=== PATIENT | male | born 1955 | race African-American/Black ===

== ENCOUNTER 2016-08-20 00:29 | Emergency (ER) | payer SELFPAY ==
[2016-08-20] MEDS ORDERED: Bupivacaine 0.5% 10 ML VIAL ONE (00:37)
[2016-08-20] MEDS ORDERED: Penicillin V Potassium 250 MG TAB ONE (00:42)
--- NOTE | 2016-08-20 02:21 | ERRECORD ---
[facility] EMERGENCY RECORD HPI TOOTHACHE (00:40 PMYE) CHIEF COMPLAINT: Patient presents for evaluation of toothache. HISTORIAN: History provided by patient. LOCATION: Symptoms are localized. TEETH: #5. QUALITY: Pain is dull in nature, described as aching. SEVERITY: Maximum severity of symptoms moderate, Currently symptoms are moderate, Maximum severity of pain rated as 10/10. TIME COURSE: Gradual onset of symptoms, There has been no change in the patient's symptoms over time. ASSOCIATED WITH: No associated symptoms. EXACERBATED BY: Patient's condition exacerbated by nothing. ROS (00:41 PMYE) CONSTITUTIONAL: Negative constitutional review of systems, Historian denies chills, denies fatigue, denies fever. EYES: Negative eye review of systems, Historian denies eye pain, denies eye redness. ENT: Negative ears, nose, throat review of systems, Historian denies dysphasia, denies otalgia, denies sore throat. CARDIOVASCULAR: Negative cardiovascular review of systems, Historian denies chest pain, denies dyspnea on exertion, denies syncope. RESPIRATORY: Negative respiratory review of systems, Historian denies cough, denies shortness of breath, denies wheezing. GI: Negative gastrointestinal review of systems, Historian denies abdominal pain, denies nausea, denies vomiting. MUSCULOSKELETAL: Negative musculoskeletal review of systems, Historian denies back pain, denies neck pain. SKIN: Negative skin review of systems, Historian denies rash. NEUROLOGIC: Negative neurologic review of systems, Historian denies confusion, denies headache, denies paresthesias. PSYCHIATRIC: Negative psychiatric review of systems, Historian denies alcohol abuse, denies drug abuse, denies homicidal ideation, denies suicidal ideation. PAST MEDICAL HISTORY (00:39 LHAL) MEDICAL HISTORY: No past medical history, Flu vaccine not up to date, Tetanus immunization up to date, Pneumococcal vaccine not up to date. MALE SURGICAL HISTORY: Surgical history of hernia repair, abdominal Hernia. PSYCHIATRIC HISTORY: No previous psychiatric history. SOCIAL HISTORY: Patient denies alcohol use, Patient is a former drug user, abused cocaine, Patient has no smoking history. KNOWN ALLERGIES No Known Allergies (Unconfirmed) No Known Drug Allergies &a-1R&a+25V*p+0X*i9241B*c202B*c15G*c2P*p-0X&a-25V&a+1R Name: Joaquin Hernandez : 1955 M60 MedRec: [id number] AcctNum: [id number] Prepared: SatAug 20, 2016 00:58 by Interface Page 1 of 3 pMD [facility] EMERGENCY RECORD CURRENT MEDICATIONS (00:36 LHAL) None VITAL SIGNS VITAL SIGNS: BP: 138/87 (Sitting), Pulse: 60 (Regular), Resp: 16 (Non-Labored), Temp: 97.0 (Tympanic), Pain: 10 (Constant), O2 sat: 99 on Room Air, Time: 08/20/2016 00:30. (00:30 LHAL) Pain: 2, Time: 08/20/2016 00:49. (00:49 LHAL) PHYSICAL EXAM (00:41 PMYE) CONSTITUTIONAL: Vital signs reviewed, Patient afebrile, Pulse normal, Blood pressure normal, Respiratory rate normal. HEAD: Head exam normal, Head exam included findings of head atraumatic, normocephalic. EYES: Eye exam normal, Eye exam included findings of eyelids normal to inspection, Pupils equally round and reactive to light, Extraocular muscles intact. ENT: ENT exam normal, Pharynx exam normal, Uvula exam normal, Tonsil exam normal, tooth #5 is fractured centrally w/ surrounding gingival erythema. NECK: Neck exam normal, Neck exam included findings of normal range of motion, Trachea midline. RESPIRATORY CHEST: Respiratory and chest exam normal, No wheezing, No rales, No rhonchi. CARDIOVASCULAR: Cardiovascular assessment normal, Cardiovascular exam included findings of heart rate regular rate and rhythm, Heart sounds normal. ABDOMEN MALE: Abdominal exam normal, Abdominal exam included findings of abdomen nontender, Bowel sounds normal. BACK: Back exam normal. NEURO: Neuro exam normal, Neuro exam findings include patient oriented to person, place and time, Nancy coma scale 15, Speech normal. SKIN: Skin exam included findings of skin warm, dry, and normal in color. PSYCHIATRIC: Psychiatric exam included findings of patient oriented to person place and time, Normal affect. MEDICATION ADMINISTRATION SUMMARY Drug Name: penicillin V potassium, Dose Ordered: 500 mg, Route: Oral, Status: Given, Time: 00:43 08/20/2016, Detailed record available in Medication Service section. DOCTOR NOTES (00:43 PMYE) TEXT: Superior alveolar block preformed w good anesthesia achieved and no complications. will provide Pen VK and [place] for pain control [place] 5/325 Disp 10 Si PO Q 4 PRN pain. &a-1R&a+25V*p+0X*t4454L*c202B*c15G*c2P*p-0X&a-25V&a+1R Name: David Joaquin Flores : 1955 M60 MedRec: [id number] AcctNum: [id number] Prepared: SatAug 20, 2016 00:58 by Interface Page 2 of 3 pMD [facility] EMERGENCY RECORD PROBLEM LIST No recorded problems DIAGNOSIS (00:44 PMYE) FINAL: PRIMARY: PERIAPICAL ABSCESS WITHOUT SINUS. PRESCRIPTION (00:45 PMYE) penicillin V potassium: TABLET : 500 mg : ORAL : Quantity: 500 Unit: mg Route: ORAL Schedule: every 6 hours Dispense: 40 Unit: tab(s) May substitute. Refills: No Refills . NOTES: No Refills. DISPOSITION PATIENT: Disposition Type: Discharge, Disposition: *Discharge Home. (00:45 PMYE) Patient left the department. (00:53 [facility]) Hardy: LHAL=JOSE MARIA Wilkerson, Ngoc PMYE=DO Burnham Paul &a-1R&a+25V*p+0X*d2999T*c202B*c15G*c2P*p-0X&a-25V&a+1R Name: Joaquin Hernandez : 1955 M60 MedRec: [id number] AcctNum: [id number] Prepared: SatAug 20, 2016 00:58 by Interface Page 3 of 3 pMD MTDD
--- NOTE | 2016-08-20 02:27 | PICIS ---
[facility] EMERGENCY RECORD TRIAGE (SatAug 20, 2016 00:36 LHAL) TRIAGE NOTES: RT FRONT TOOTH ACHE SINCE . (SatAug 20, 2016 00:36 LHAL) PATIENT: NAME: Joaquin Hernandez, AGE: 60, GENDER: male, : Sat1955, TIME OF GREET: SatAug 20, 2016 00:30, PREFERRED LANGUAGE: [place], ETHNICITY: Not or , ECODE BILLING MAP: [facility], SSN: [id number], Zip Code: [address], KG WEIGHT: 90.72, PHONE: , , , PERSON ID: [id number], PCP: NONE. (SatAug 20, 2016 00:36 LHAL) COMPLAINT: TOOTH PAIN. (SatAug 20, 2016 00:36 AL) ADMISSION: URGENCY: 5 Fast Track, ADMISSION SOURCE: Home, TRANSPORT: CAR, BED: ER -03. (SatAug 20, 2016 00:36 LHAL) ASSESSMENT: Assessment: TOOTHACHE SINCE SATURDAY, Symptoms began SATURDAY. (00:39 LHAL) PAIN: Patient complains of pain described as, aching, on a scale 0-10 patient rates pain as 10, Pain is constant, No aggravating factors, No relieving factors. (00:39 LHAL) IMMUNIZATIONS: Flu vaccine not up to date, Tetanus immunization up to date, Pneumococcal vaccine not up to date, Notes: TOOK TYLENOL AND MOTRIN ONE HR AGO, HAS BEEN USING MOTRIN SINCE SATURDAY. (00:39 LHAL) SIRS SCORING: Heart Rate 55-109 (0), Temp range 96.8-101.1 (0), respiratory rate 12-24 (0), Mental Status altered: no (0), Infection or Suspected Infection: No. (00:39 LHAL) TRIAGE SCREENING: Patient denies suicidal ideation, Patient denies presence of domestic violence. (00:39 LHAL) PROVIDERS: TRIAGE NURSE: Ngoc Wilkerson RN. (SatAug 20, 2016 00:36 LHAL) VITAL SIGNS: BP 138/87, (Sitting), Pulse 60, (Regular), Resp 16, (Non-Labored), Temp 97.0, (Tympanic), Pain 10, (Constant), O2 Sat 99, on Room Air, Time 08/20/2016 00:30. (00:30 LHAL) PREVIOUS VISIT ALLERGIES: No Known Drug Allergies. (SatAug 20, 2016 00:36 LHAL) No Known Drug Allergies. (00:39 LHAL) KNOWN ALLERGIES No Known Allergies (Unconfirmed) No Known Drug Allergies CURRENT MEDICATIONS (00:36 LHAL) None VITAL SIGNS VITAL SIGNS: BP: 138/87 (Sitting), Pulse: 60 (Regular), Resp: 16 (Non-Labored), Temp: 97.0 (Tympanic), Pain: 10 (Constant), O2 sat: 99 on Room Air, Time: 08/20/2016 00:30. (00:30 LHAL) Pain: 2, Time: 08/20/2016 00:49. (00:49 LHAL) &a-1R&a+25V*p+0X*v5944G*c202B*c15G*c2P*p-0X&a-25V&a+1R Name: Joaquin Hernandez : 1955 M60 MedRec: [id number] AcctNum: [id number] Prepared: SatAug 20, 2016 00:58 by Interface Page 1 of 5 pMD [facility] EMERGENCY RECORD NURSING ASSESSMENT: DENTAL (00:36 LHAL) CONSTITUTIONAL: Patient arrives ambulatory, Gait steady, History obtained from patient, Patient appears, uncomfortable, Patient cooperative, Patient alert, Oriented to person, place and time, Skin warm, Skin dry, Skin normal in color, Mucous membranes pink, Mucous membranes moist, Patient is well-groomed, Patient complains of TOOTHACHE. PAIN: aching pain, RIGHT UPPER INCISOR, Onset of pain SATURDAY, constant, on a scale 0-10 patient rates pain as 10, TAKING MOTRIN/TYLENOL NO RELIEF, Pain exacerbated by nothing. DENTAL: Dental assessment findings include mouth normal, Teeth abnormal:, signs of infection to secondary tooth (teeth), missing secondary tooth (teeth), gums tender, no associated malocclusion of jaw, no associated bleeding, no associated swelling, Notes: HASN'T CALLED A DENTIST. SAFETY: Side rails up, Cart/Stretcher in lowest position, Family at bedside, Call light within reach. NURSING PROCEDURE: DISCHARGE NOTE (00:49 AL) DISCHARGE: Patient discharged to home, ambulating without assistance, driving self, unaccompanied, Summary of Care printed/ provided, Patient requested and was provided an electronic copy of Discharge Instructions, Transition record given to patient, Discharge instructions given to patient, Simple or moderate discharge teaching performed, by Johnnie WILKERSON RN, Prescriptions given and instructions on side effects given, Name of prescription(s) given: PEN V K, NORCO, Medication reconciliation form given, and reviewed with patient, Above person(s) verbalized understanding of discharge instructions and follow-up care, Notes: DC HOME STABLE, FEELING BETTER. BELONGINGS: Belongings and valuables with patient upon arrival to the Emergency Department include:. VITAL SIGNS: Pain: 2. NURSING PROCEDURE: NURSE NOTES (00:39 AL) NURSES NOTES: Patient examined by physician, Notes: MD INJECTS MARCAINE TO GUM. MEDICATION ADMINISTRATION SUMMARY Drug Name: penicillin V potassium, Dose Ordered: 500 mg, Route: Oral, Status: Given, Time: 00:43 08/20/2016, Detailed record available in Medication Service section. MEDICATION SERVICE penicillin V potassium: Order: penicillin V potassium - Dose: 500 mg : Oral Schedule: Now Ordered by: Julián Burnham DO &a-1R&a+25V*p+0X*j2750B*c202B*c15G*c2P*p-0X&a-25V&a+1R Name: Joaquin Hernandez : 1955 M60 MedRec: [id number] AcctNum: [id number] Prepared: SatAug 20, 2016 00:58 by Interface Page 2 of 5 D [facility] EMERGENCY RECORD Entered by: Julián Burnham DO SatAug 20, 2016 00:40 Documented as given by: Ngoc Wilkerson RN SatAug 20, 2016 00:43 Patient, Medication, Dose, Route and Time verified prior to administration. Amount given: 500 MG, Site: Medication administered P.O., Correct patient, time, route, dose and medication confirmed prior to administration, Patient advised of actions and side-effects prior to administration, Allergies confirmed and medications reviewed prior to administration, Administered by Johnnie WILKERSON RN, Patient in position of comfort, Side rails up, Cart in lowest position. : Follow Up : No signs or symptoms of allergic reaction noted. (00:49 LHAL) HPI TOOTHACHE (00:40 PMYE) CHIEF COMPLAINT: Patient presents for evaluation of toothache. HISTORIAN: History provided by patient. LOCATION: Symptoms are localized. TEETH: #5. QUALITY: Pain is dull in nature, described as aching. SEVERITY: Maximum severity of symptoms moderate, Currently symptoms are moderate, Maximum severity of pain rated as 10/10. TIME COURSE: Gradual onset of symptoms, There has been no change in the patient's symptoms over time. ASSOCIATED WITH: No associated symptoms. EXACERBATED BY: Patient's condition exacerbated by nothing. ROS (00:41 PMYE) CONSTITUTIONAL: Negative constitutional review of systems, Historian denies chills, denies fatigue, denies fever. EYES: Negative eye review of systems, Historian denies eye pain, denies eye redness. ENT: Negative ears, nose, throat review of systems, Historian denies dysphasia, denies otalgia, denies sore throat. CARDIOVASCULAR: Negative cardiovascular review of systems, Historian denies chest pain, denies dyspnea on exertion, denies syncope. RESPIRATORY: Negative respiratory review of systems, Historian denies cough, denies shortness of breath, denies wheezing. GI: Negative gastrointestinal review of systems, Historian denies abdominal pain, denies nausea, denies vomiting. MUSCULOSKELETAL: Negative musculoskeletal review of systems, Historian denies back pain, denies neck pain. SKIN: Negative skin review of systems, Historian denies rash. NEUROLOGIC: Negative neurologic review of systems, Historian denies confusion, denies headache, denies paresthesias. PSYCHIATRIC: Negative psychiatric review of systems, Historian denies alcohol abuse, denies drug abuse, denies homicidal ideation, denies suicidal ideation. &a-1R&a+25V*p+0X*s8220S*c202B*c15G*c2P*p-0X&a-25V&a+1R Name: Joaquin Hernandez : 1955 M60 MedRec: [id number] AcctNum: [id number] Prepared: SatAug 20, 2016 00:58 by Interface Page 3 of 5 pMD [facility] EMERGENCY RECORD PAST MEDICAL HISTORY (00:39 LHAL) MEDICAL HISTORY: No past medical history, Flu vaccine not up to date, Tetanus immunization up to date, Pneumococcal vaccine not up to date. MALE SURGICAL HISTORY: Surgical history of hernia repair, abdominal Hernia. PSYCHIATRIC HISTORY: No previous psychiatric history. SOCIAL HISTORY: Patient denies alcohol use, Patient is a former drug user, abused cocaine, Patient has no smoking history. PHYSICAL EXAM (00:41 PMYE) CONSTITUTIONAL: Vital signs reviewed, Patient afebrile, Pulse normal, Blood pressure normal, Respiratory rate normal. HEAD: Head exam normal, Head exam included findings of head atraumatic, normocephalic. EYES: Eye exam normal, Eye exam included findings of eyelids normal to inspection, Pupils equally round and reactive to light, Extraocular muscles intact. ENT: ENT exam normal, Pharynx exam normal, Uvula exam normal, Tonsil exam normal, tooth #5 is fractured centrally w/ surrounding gingival erythema. NECK: Neck exam normal, Neck exam included findings of normal range of motion, Trachea midline. RESPIRATORY CHEST: Respiratory and chest exam normal, No wheezing, No rales, No rhonchi. CARDIOVASCULAR: Cardiovascular assessment normal, Cardiovascular exam included findings of heart rate regular rate and rhythm, Heart sounds normal. ABDOMEN MALE: Abdominal exam normal, Abdominal exam included findings of abdomen nontender, Bowel sounds normal. BACK: Back exam normal. NEURO: Neuro exam normal, Neuro exam findings include patient oriented to person, place and time, Nancy coma scale 15, Speech normal. SKIN: Skin exam included findings of skin warm, dry, and normal in color. PSYCHIATRIC: Psychiatric exam included findings of patient oriented to person place and time, Normal affect. EVENTS TRANSFER: Triage to Emergency Emergency Room -03. (00:36 LHAL) Removed from Emergency Emergency Room -03. (00:53 LHAL) DOCTOR NOTES (00:43 PMYE) TEXT: Superior alveolar block preformed w good anesthesia achieved and no complications. will provide Pen VK and [place] for pain control [place] 5/325 Disp 10 Si PO Q 4 PRN pain. PROBLEM LIST &a-1R&a+25V*p+0X*e8879H*c202B*c15G*c2P*p-0X&a-25V&a+1R Name: Joaquin Hernandez : 1955 M60 MedRec: [id number] AcctNum: [id number] Prepared: SatAug 20, 2016 00:58 by Interface Page 4 of 5 pMD [facility] EMERGENCY RECORD No recorded problems DIAGNOSIS (00:44 PMYE) FINAL: PRIMARY: PERIAPICAL ABSCESS WITHOUT SINUS. DISPOSITION PATIENT: Disposition Type: Discharge, Disposition: *Discharge Home. (00:45 PMYE) Patient left the department. (00:53 LHAL) INSTRUCTION (00:46 PMYE) DISCHARGE: DENTAL ABSCESS. FOLLOWUP: Follow up with Primary Care Physician in 1-2 days. SPECIAL: Follow with your PCP. PRESCRIPTION (00:45 PMYE) penicillin V potassium: TABLET : 500 mg : ORAL : Quantity: 500 Unit: mg Route: ORAL Schedule: every 6 hours Dispense: 40 Unit: tab(s) May substitute. Refills: No Refills . NOTES: No Refills. IMAGING NORCO RX: Image captured from scanner. (00:50 LHAL) *DISCHARGE INSTRUCTIONS RECEIPT: Image captured from scanner. (00:50 LHAL) *SUPPLY CHARGE SHEET: Image captured from scanner. (00:51 LHAL) ADMIN DIGITAL SIGNATURE: DO Burnham Paul. (00:47 PMYE) DO Burnham Paul. (00:47 PMYE) JOSE MARIA Wilkerson Linda. (00:52 LHAL) Hardy: LHAL=JOSE MARIA Wilkerson Linda PMYE=DO Burnham Paul &a-1R&a+25V*p+0X*c7002Y*c202B*c15G*c2P*p-0X&a-25V&a+1R Name: Joaquin Hernandez : 1955 M60 MedRec: [id number] AcctNum: [id number] Prepared: SatAug 20, 2016 00:58 by Interface Page 5 of 5 pMD MTDD
== END 2016-08-20 00:49 | disposition home or self-care (01) ==
LOC: NAV ERS 00:29
DX: K04.7 Periapical abscess without sinus (principal)
CPT/HCPCS: 64400; J3490

== ENCOUNTER 2017-07-12 11:54 | Emergency (ER) | payer SELFPAY ==
[2017-07-12] MEDS ORDERED: Ibuprofen 800 MG TAB ONE (12:43)
[2017-07-12] MEDS ORDERED: HYDROcodone/Acetaminophen 5/325 mg Tablet ONE (12:43)
--- NOTE | 2017-07-12 13:33 | RAD ---
RIGHT FOOT THREE VIEWS: HISTORY: Pain in the great toe. Dropped car battery on foot. COMPARISON: None. FINDINGS: Mild hallus valgus deformity with mild degenerative change in the first metatarsophalangeal joint spa ce. There is mid foot soft tissue swelling. Other joint spaces are preserved. There is a bony defe ct lateral to the cuboid bone. Etiology and significance are uncertain. Better interrogation with C T may be beneficial. Lisfranc alignment is maintained. IMPRESSION: 1. Midfoot soft tissue swelling. 2. Ossific density lateral to the cuboid bone, of uncertain etiology and significance. If there is pain or point tenderness in this region, consider CT. 3. Degenerative change in the first metatarsophalangeal joint space. POS: THANIA
== END 2017-07-12 12:55 | disposition home or self-care (01) ==
LOC: NAV ERS 11:54
DX: S90.31XA Contusion of right foot, initial encounter (principal); Z79.899 Other long term (current) drug therapy; W20.8XXA Other cause of strike by thrown, projected or falling object, initial encounter

== ENCOUNTER 2017-07-20 11:08 | Emergency (ER) | payer SELFPAY | END 2017-07-20 11:48 | disposition home or self-care (01) | LOC: NAV ERS 11:08 | DX: H81.10 Benign paroxysmal vertigo, unspecified ear (principal); Z79.899 Other long term (current) drug therapy | CPT/HCPCS: 93005 ==

== ENCOUNTER 2018-09-16 20:09 | Emergency (ER) | payer SELFPAY | END 2018-09-16 20:40 | disposition home or self-care (01) | LOC: NAV ERS 20:09 | DX: R10.13 Epigastric pain (principal) | CPT/HCPCS: 99283 ==

== ENCOUNTER 2020-02-21 15:13 | Emergency (ER) | payer MEDICARE, SELFPAY ==
[2020-02-21] MEDS ORDERED: Ketorolac Tromethamine 60 MG/2 ML VIAL ONE (15:55)
--- NOTE | 2020-02-21 16:16 | RAD ---
Left shoulder 3 views HISTORY: Left shoulder pain. FINDINGS: Acromioclavicular and glenohumeral alignment are maintained with moderate osteophytosis. Dy strophic calcification projects over the acromioclavicular joint superiorly. Linear amorphous calcification also projects over the distal supraspinatus tendon. IMPRESSION : Rotator cuff calcific tendinosis. Osteoarthritis about the shoulder.
== END 2020-02-21 16:25 | disposition home or self-care (01) ==
LOC: NAV ERS 15:13
DX: S46.912A Strain of unspecified muscle, fascia and tendon at shoulder and upper arm level, left arm, initial encounter (principal); K21.9 Gastro-esophageal reflux disease without esophagitis; X58.XXXA Exposure to other specified factors, initial encounter
CPT/HCPCS: 96372; J1885

== ENCOUNTER 2020-06-11 09:26 | Emergency (ER) | payer MEDICARE | END 2020-06-11 09:59 | disposition home or self-care (01) | LOC: NAV ERS 09:26 | DX: J34.0 Abscess, furuncle and carbuncle of nose (principal); L03.211 Cellulitis of face; K21.9 Gastro-esophageal reflux disease without esophagitis; Z79.899 Other long term (current) drug therapy | CPT/HCPCS: 99283 ==

== ENCOUNTER 2020-10-30 18:41 | Emergency (ER) | payer MEDICARE ==
[2020-10-30] MEDS ORDERED: Lidocaine 1% w/Epinephrine 1:100K 30 ML VIAL ONE (19:07)
[2020-10-30] MEDS ORDERED: Amoxicillin/Potassium Clav 875 MG TAB ONE (19:24)
== END 2020-10-30 19:28 | disposition home or self-care (01) ==
LOC: NAV ERS 18:41
DX: K04.7 Periapical abscess without sinus (principal); K21.9 Gastro-esophageal reflux disease without esophagitis
CPT/HCPCS: 41800

== ENCOUNTER 2021-05-28 20:29 | Emergency (ER) | payer MEDICARE, SELFPAY ==
[2021-05-28] MEDS ORDERED: Acetaminophen 325 MG TAB ONE (20:52)
== END 2021-05-28 20:56 | disposition home or self-care (01) ==
LOC: NAV ERS 20:29
DX: M79.671 Pain in right foot (principal); K21.9 Gastro-esophageal reflux disease without esophagitis
CPT/HCPCS: 99283

== ENCOUNTER 2021-12-05 19:16 | Outpatient (CLI) | payer MEDICARE | END 2021-12-05 19:17 | disposition home or self-care (01) | LOC: NAV RAD 19:16 | PROVIDERS: ATTEND Family Medicine | DX: S40.851A Superficial foreign body of right upper arm, initial encounter (principal); M25.561 Pain in right knee; M17.11 Unilateral primary osteoarthritis, right knee | CPT/HCPCS: 73565 ==

== ENCOUNTER 2022-01-17 21:50 | Emergency (ER) | payer MEDICARE, OTHER | END 2022-01-17 22:26 | disposition home or self-care (01) | LOC: NAV ERS 21:50 | DX: M72.2 Plantar fascial fibromatosis (principal); K21.9 Gastro-esophageal reflux disease without esophagitis | CPT/HCPCS: 99283 ==

== ENCOUNTER 2022-01-29 08:43 | Emergency (ER) | payer OTHER ==
[2022-01-29] MEDS ORDERED: Ondansetron PF 4 MG/2 ML Vial ONE (09:28)
[2022-01-29] MEDS ORDERED: Sodium Chloride 0.9% 1,000 ML ONE (09:28)
[2022-01-29 09:30] LABS: Bilirubin Negative (Negative); Blood, Urine Trace (Negative); Clarity Clear (Clear); Glucose, Urine (Dipstick) Negative (Negative); Ketone, Urine Negative (Negative); Leukocyte Negative (Negative); Nitrite Negative (Negative); Protein, Urine (Dipstick) Negative (Neg-Trace); Specific Gravity, Urine 1.025 (1.005-1.030); pH, Urine 6.5 (5.0-9.0)
[2022-01-29 09:35] LABS: #Eosinphils 0.2 thou/uL (0.0-0.7); #Lymphocytes 1.3 thou/uL (1.20-3.40); #Monocytes 0.7 thou/uL (0.11-0.59); #Neutrophils 4.2 thou/uL (1.40-6.50); %Basophils 0.7 % (0.0-1.0); %Eosinophils 2.9 % (0.0-10.0); %Lymphocytes 20.1 % (21.0-51.0); %Monocytes 10.9 % (0.0-10.0); %Neutrophils 65.4 % (42.0-75.0); Hemoglobin 13.6 g/dL (14.0-18.0); Mean Corpuscular HGB CONC 31.4 g/dL (32.0-36.0); Mean Corpuscular Hemoglobin 29.2 pg (27.0-31.0); Mean Corpuscular Volume 92.9 fL (78.0-98.0); Mean Platelet Volume 6.8 fL (7.4-10.4); Platelet Count 202 thou/uL (130-400); RBC Distribution Width 12.3 % (11.5-14.5); Red Blood Cell (RBC) Count 4.65 mill/uL (4.70-6.10); White Blood Cell (WBC) Count 6.4 thou/uL (4.8-10.8)
[2022-01-29 09:41] LABS: WBC/HPF 0-3 HPF (0-3)
[2022-01-29 09:42] LABS: Bacteria/HPF None Seen HPF (None Seen); Squamous Epithelial 0-3 HPF (0-3)
[2022-01-29 09:48] LABS: ALT (SGPT) 19 U/L (8-55); AST (SGOT) 17 U/L (5-34); Albumin 3.8 g/dL (3.4-4.8); Alkaline Phosphatase 68 U/L (40-110); Anion Gap 13 mmol/L (10-20); BUN (Urea Nitrogen) 11 mg/dL (8.4-25.7); Bilirubin, Total 0.7 mg/dL (0.2-1.2); Calc. Creatinine Clearance 0 mL/min (70-130); Calcium 8.8 mg/dL (7.8-10.44); Carbon Dioxide 23 mmol/L (23-31); Chloride 107 mmol/L (98-107); Globulin 3.7 g/dL (2.4-3.5); Glucose 107 mg/dL (80-115); Lipase 18 U/L (8-78); Potassium 3.7 mmol/L (3.5-5.1); Protein, Total 7.5 g/dL (5.8-8.1); Sodium 139 mmol/L (136-145)
== END 2022-01-29 11:56 | disposition home or self-care (01) ==
LOC: NAV ERS 08:43
DX: K40.90 Unilateral inguinal hernia, without obstruction or gangrene, not specified as recurrent (principal); N32.89 Other specified disorders of bladder; K21.9 Gastro-esophageal reflux disease without esophagitis
CPT/HCPCS: 74176; 80053; 81003; 81015; 83690; 84484; 85025; 93005; 94760; 96361; 96374; J2405; J7050

== ENCOUNTER 2022-02-03 10:14 | Emergency (ER) | payer OTHER | END 2022-02-03 11:11 | disposition home or self-care (01) | LOC: NAV ERS 10:14 | DX: S16.1XXA Strain of muscle, fascia and tendon at neck level, initial encounter (principal); K21.9 Gastro-esophageal reflux disease without esophagitis; Z79.899 Other long term (current) drug therapy; X58.XXXA Exposure to other specified factors, initial encounter | CPT/HCPCS: 99283 ==

== ENCOUNTER 2022-05-10 10:10 | Outpatient (CLI) | payer OTHER ==
[~2022-05-10 10:10] MED LIST: Iopamidol 370 76% 100 ML VIAL ONE
== END 2022-05-10 10:11 | disposition home or self-care (01) ==
LOC: NAV CT 10:10
PROVIDERS: ATTEND Family Medicine
DX: Z01.818 Encounter for other preprocedural examination (principal); H93.19 Tinnitus, unspecified ear; I67.82 Cerebral ischemia
CPT/HCPCS: 36415; 70470; 82565; Q9967

== ENCOUNTER 2024-02-12 14:29 | Emergency (ER) | payer MEDICARE, OTHER, SELFPAY ==
[2024-02-12] MEDS ORDERED: Ondansetron PF 4 MG/2 ML Vial ONE (15:23)
[2024-02-12] MEDS ORDERED: Sodium Chloride 0.9% 1,000 ML ONE (15:23)
[2024-02-12 15:36] LABS: #Basophils 0.2 thou/uL (0.0-0.2); #Eosinphils 0.1 thou/uL (0.0-0.7); #Lymphocytes 0.6 thou/uL (1.20-3.40); #Monocytes 0.7 thou/uL (0.11-0.59); #Neutrophils 3.6 thou/uL (1.40-6.50); %Basophils 3.7 % (0.0-1.0); %Eosinophils 1.1 % (0.0-10.0); %Lymphocytes 10.8 % (21.0-51.0); %Monocytes 13.4 % (0.0-10.0); Hematocrit 43.7 % (42.0-52.0); Hemoglobin 14.1 g/dL (14.0-18.0); Mean Corpuscular HGB CONC 32.2 g/dL (32.0-36.0); Mean Corpuscular Hemoglobin 28.8 pg (27.0-31.0); Mean Corpuscular Volume 89.6 fl (78.0-98.0); Mean Platelet Volume 6.5 fL (7.4-10.4); Platelet Count 181 10x3/uL (130-400); RBC Distribution Width 11.9 % (11.5-14.5); Red Blood Cell (RBC) Count 4.88 mill/uL (4.70-6.10)
[2024-02-12 15:42] LABS: ALT (SGPT) 22 U/L (8-55); AST (SGOT) 25 U/L (5-34); Albumin 3.9 g/dL (3.4-4.8); Alkaline Phosphatase 72 U/L (40-110); Anion Gap 15 mmol/L (10-20); BUN (Urea Nitrogen) 18 mg/dL (8.4-25.7); Bilirubin, Total 0.6 mg/dL (0.2-1.2); CK (CPK) 204 U/L (30-200); Calc. Creatinine Clearance 0 mL/min (70-130); Calcium 9.2 mg/dL (7.8-10.44); Carbon Dioxide 22 mmol/L (23-31); Chloride 103 mmol/L (98-107); Estimated GFR 49; Globulin 4.3 g/dL (2.4-3.5); Glucose 104 mg/dL (80-115); Potassium 3.9 mmol/L (3.5-5.1); Protein, Total 8.2 g/dL (5.8-8.1); Sodium 136 mmol/L (136-145)
[2024-02-12 15:56] LABS: Bilirubin Negative (Negative); Blood, Urine Trace (Negative); Clarity Clear (Clear); Glucose, Urine (Dipstick) Negative (Negative); Ketone, Urine Negative (Negative); Leukocyte Negative (Negative); Nitrite Negative (Negative); Protein, Urine (Dipstick) Negative (Neg-Trace); Specific Gravity, Urine 1.025 (1.005-1.030); Urobilinogen 0.2 mg/dL (Less than 2)
[2024-02-12 15:57] LABS: Urine Culture Reflex No No
[2024-02-12 15:58] LABS: CAUTI Indications for Culture Alt mental st,lethar; RBC/HPF 0-3 HPF (0-3); Squamous Epithelial 0-3 HPF (0-3); WBC/HPF 0-3 HPF (0-3)
== END 2024-02-12 17:27 | disposition home or self-care (01) ==
LOC: NAV ERS 14:29
DX: E86.0 Dehydration (principal); I10 Essential (primary) hypertension; Z79.899 Other long term (current) drug therapy
CPT/HCPCS: 80053; 81001; 82550; 85025; 96374; J2405; J7050

== ENCOUNTER 2024-03-24 14:12 | Emergency (ER) | payer OTHER | END 2024-03-24 15:25 | disposition home or self-care (01) | LOC: NAV ERS 14:12 | DX: R42 Dizziness and giddiness (principal) | CPT/HCPCS: 99283 ==